=== PATIENT | female | born 1990 | race Caucasian/White ===

== ENCOUNTER 2017-10-18 02:57 | Emergency (ER) | payer MEDICAID | END 2017-10-18 05:03 | disposition home or self-care (01) | LOC: D.ER 02:57 | DX: B34.9 Viral infection, unspecified (principal); F17.200 Nicotine dependence, unspecified, uncomplicated ==

== ENCOUNTER 2018-01-17 04:21 | Emergency (ER) | payer MEDICAID ==
[2018-01-17 04:51] LABS: BASOPHILS 0.6 % (0-2); EOSINOPHILS 7.8 % (0-7); HEMATOCRIT 39.6 % (36.0-48.0); HEMOGLOBIN 13.7 g/dL (12-16); IMMATURE GRANULOCYTES 0.2 % (0-5); LYMPHOCYTES 24.5 % (15-50); MCH 29.7 pg (26.0-34.0); MCHC 34.6 g/dL (31.0-37.0); MCV 85.9 fL (80.0-100.0); MEAN PLATELET VOLUME 9.3 fL (7.4-10.4); MONOCYTES 8.6 % (2-11); NEUTROPHILS 58.3 % (40-80); PLATELET COUNT 347 10x3/uL (130-400); RBC 4.61 10x6/uL (4.00-5.40); RDW 13.1 % (11.5-14.5); WBC 6.4 10x3/uL (4.8-10.8)
[2018-01-17 06:08] LABS: UDS - AMPHET POSITIVE QUAL (NEGATIVE); UDS - BARB NEGATIVE QUAL (NEGATIVE); UDS - BENZO POSITIVE QUAL (NEGATIVE); UDS - COCAINE NEGATIVE QUAL (NEGATIVE); UDS - OPIATE NEGATIVE QUAL (NEGATIVE); UDS - PCP NEGATIVE QUAL (NEGATIVE); UDS - THC POSITIVE QUAL (NEGATIVE)
[2018-01-17 06:11] LABS: APPEARANCE CLOUDY (CLEAR); BILIRUBIN NEGATIVE (NEGATIVE); COLOR DK YELLOW (YELLOW); GLUCOSE NEGATIVE (NEGATIVE); KETONE NEGATIVE (NEGATIVE); NITRITE POSITIVE (NEGATIVE); PROTEIN 2+ mg/dL (NEGATIVE); UROBILINOGEN NORMAL (NORMAL)
[2018-01-17 06:12] LABS: RED CELLS - URINE 0-5 /hpf (0-5)
[2018-01-17 06:13] LABS: BACTERIA MANY /hpf (NONE SEEN); EPITHELIAL CELLS 0-5 /hpf (0-5)
== END 2018-01-17 07:44 ==
LOC: D.ER 04:21
PROVIDERS: Emergency Medicine
DX: S16.1XXA Strain of muscle, fascia and tendon at neck level, initial encounter (principal); V49.9XXA Car occupant (driver) (passenger) injured in unspecified traffic accident, initial encounter; Y93.89 Activity, other specified; Y92.89 Other specified places as the place of occurrence of the external cause; S80.02XA Contusion of left knee, initial encounter; S80.01XA Contusion of right knee, initial encounter; R07.89 Other chest pain

== ENCOUNTER 2018-08-09 15:38 | Emergency (ER) | payer MEDICAID ==
[~2018-08-09] VITALS: Ht 160 cm; Wt 59.1 kg
[2018-08-09 15:56] VITALS: Ht 160 cm; Wt 59.1 kg
[2018-08-09 19:10] VITALS: BP 145/97
== END 2018-08-09 19:10 | disposition home or self-care (01) ==
LOC: D.ER 15:38
DX: S61.411A Laceration without foreign body of right hand, initial encounter (principal); W26.0XXA Contact with knife, initial encounter; Y93.89 Activity, other specified; Y92.019 Unspecified place in single-family (private) house as the place of occurrence of the external cause; F17.200 Nicotine dependence, unspecified, uncomplicated

== ENCOUNTER 2018-09-12 23:51 | Inpatient (IN) | payer MEDICAID ==
[~2018-09-12] VITALS: Ht 160 cm; Wt 61.5 kg
[2018-09-13] VITALS (13 sets, daily range): BP systolic 102–118; BP diastolic 38–73; Ht 160 cm; Wt 61.5 kg
[2018-09-13 00:20] LABS: BASOPHILS 0.6 % (0-2); EOSINOPHILS 6.7 % (0-7); HEMATOCRIT 37.8 % (36.0-48.0); HEMOGLOBIN 12.4 g/dL (12-16); IMMATURE GRANULOCYTES 0.2 % (0-5); LYMPHOCYTES 28.6 % (15-50); MCH 28.9 pg (26.0-34.0); MCHC 32.8 g/dL (31.0-37.0); MCV 88.1 fL (80.0-100.0); MONOCYTES 10.7 % (2-11); NEUTROPHILS 53.2 % (40-80); PLATELET COUNT 364 10x3/uL (130-400); RBC 4.29 10x6/uL (4.00-5.40); RDW 12.9 % (11.5-14.5); WBC 6.5 10x3/uL (4.8-10.8)
[2018-09-13 00:26] LABS: HCG URINE NEGATIVE (NEGATIVE)
[2018-09-13 00:33] LABS: APPEARANCE HAZY (CLEAR); BILIRUBIN NEGATIVE (NEGATIVE); COLOR YELLOW (YELLOW); GLUCOSE NEGATIVE (NEGATIVE); KETONE NEGATIVE (NEGATIVE); NITRITE POSITIVE (NEGATIVE); PROTEIN TRACE mg/dL (NEGATIVE); SPECIFIC GRAVITY 1.015 (1.005-1.020); UROBILINOGEN NORMAL (NORMAL)
[2018-09-13 00:34] LABS: BACTERIA MANY /hpf (NONE SEEN); EPITHELIAL CELLS RARE /hpf (0-5); RED CELLS - URINE 0-5 /hpf (0-5)
[2018-09-13 00:45] LABS: ALBUMIN 3.3 g/dL (3.4-5.0); ALKALINE PHOSPHATASE 85 U/L (46-116); ALT (SGPT) 32 U/L (10-68); BILIRUBIN - TOTAL 0.13 mg/dL (0.2-1.3); CALC OSMOLALITY 275 mosm/kg (275-300); CALCIUM 8.5 mg/dL (8.5-10.1); CHLORIDE - SERUM 104 mmol/L (98-107); CREATININE - SERUM 0.9 mg/dL (0.6-1.3); GLUCOSE 75 mg/dL (74-106); POTASSIUM - SERUM 3.5 mmol/L (3.5-5.1); PROTEIN - SERUM 7.7 g/dL (6.4-8.2); SODIUM 138 mmol/L (136-145); UREA NITROGEN 16 mg/dL (7-18); eGFR NON AFRICAN AMERICAN 78 mL/min (90-120)
[2018-09-13 00:46] LABS: UDS - AMPHET POSITIVE QUAL (NEGATIVE); UDS - BARB NEGATIVE QUAL (NEGATIVE); UDS - BENZO NEGATIVE QUAL (NEGATIVE); UDS - COCAINE NEGATIVE QUAL (NEGATIVE); UDS - OPIATE POSITIVE QUAL (NEGATIVE); UDS - PCP NEGATIVE QUAL (NEGATIVE); UDS - THC NEGATIVE QUAL (NEGATIVE)
[2018-09-13 00:48] LABS: MAGNESIUM - SERUM 2.1 mg/dL (1.8-2.4)
[2018-09-13] MEDS ORDERED: BACTRIM 400-801 TAB PO (11:33)
== END 2018-09-13 12:15 | disposition home or self-care (01) | DRG 918 ==
LOC: D.ER 23:51 → D.ICU 09-13 00:55 → D.EDHOLD 09-13 00:55 → D.ICU 09-13 00:55
PROVIDERS: Emergency Medicine
DX: T40.1X1A Poisoning by heroin, accidental (unintentional), initial encounter (principal); N39.0 Urinary tract infection, site not specified; F17.200 Nicotine dependence, unspecified, uncomplicated; F15.90 Other stimulant use, unspecified, uncomplicated; F12.90 Cannabis use, unspecified, uncomplicated

== ENCOUNTER 2019-02-10 20:20 | Emergency (ER) | payer MEDICAID ==
[~2019-02-10] VITALS: Ht 160 cm; Wt 59.1 kg
[~2019-02-10 20:20] MED LIST: BACTRIM 400-801 TAB PO
[2019-02-10 20:41] VITALS: Ht 160 cm; Wt 59.1 kg
[2019-02-10 21:35] LABS: BASOPHILS 0.6 % (0-2); HEMATOCRIT 37.8 % (36.0-48.0); HEMOGLOBIN 12.4 g/dL (12-16); IMMATURE GRANULOCYTES 0.3 % (0-5); LYMPHOCYTES 24.9 % (15-50); MCH 26.8 pg (26.0-34.0); MCHC 32.8 g/dL (31.0-37.0); MCV 81.8 fL (80.0-100.0); MEAN PLATELET VOLUME 9.5 fL (7.4-10.4); NEUTROPHILS 61.2 % (40-80); PLATELET COUNT 397 10x3/uL (130-400); RBC 4.62 10x6/uL (4.00-5.40)
[2019-02-10 22:02] LABS: ALKALINE PHOSPHATASE 92 U/L (46-116); ALT (SGPT) 126 U/L (10-68); BILIRUBIN - TOTAL 0.95 mg/dL (0.2-1.3); CALC OSMOLALITY 279 mosm/kg (275-300); CALCIUM 9.1 mg/dL (8.5-10.1); CARBON DIOXIDE 28.5 mmol/L (21.0-32.0); CHLORIDE - SERUM 103 mmol/L (98-107); CREATININE - SERUM 0.9 mg/dL (0.6-1.3); POTASSIUM - SERUM 3.7 mmol/L (3.5-5.1); PROTEIN - SERUM 8.6 g/dL (6.4-8.2); SODIUM 141 mmol/L (136-145); UREA NITROGEN 15 mg/dL (7-18); eGFR NON AFRICAN AMERICAN 78 mL/min (90-120)
[2019-02-10 22:04] LABS: GLUCOSE 70 mg/dL (74-106)
[2019-02-10 22:06] LABS: MAGNESIUM - SERUM 1.9 mg/dL (1.8-2.4); THYROID STIMULATING HORMONE 0.29 uIU/mL (0.36-3.74)
[2019-02-10 23:18] LABS: T4 THYROXINE 10.2 ug/dL (4.7-13.3)
[2019-02-10 23:36] LABS: UDS - AMPHET POSITIVE QUAL (NEGATIVE); UDS - BARB NEGATIVE QUAL (NEGATIVE); UDS - BENZO POSITIVE QUAL (NEGATIVE); UDS - COCAINE NEGATIVE QUAL (NEGATIVE); UDS - OPIATE POSITIVE QUAL (NEGATIVE); UDS - PCP NEGATIVE QUAL (NEGATIVE); UDS - THC POSITIVE QUAL (NEGATIVE)
[2019-02-10 23:39] LABS: HCG URINE NEGATIVE (NEGATIVE)
[2019-02-10 23:40] LABS: APPEARANCE HAZY (CLEAR); BILIRUBIN 2+ (NEGATIVE); COLOR DK YELLOW (YELLOW); GLUCOSE NEGATIVE (NEGATIVE); KETONE NEGATIVE (NEGATIVE); NITRITE POSITIVE (NEGATIVE); PROTEIN NEGATIVE (NEGATIVE)
[2019-02-10 23:46] LABS: BACTERIA MANY /hpf (NONE SEEN); HYALINE CAST OCC /lpf (NONE SEEN); MUCUS <1+ /lpf (NONE SEEN); RED CELLS - URINE 0-5 /hpf (0-5)
[2019-02-11 02:46] VITALS: BP 138/90
== END 2019-02-11 02:50 ==
LOC: D.ER 20:20
PROVIDERS: Family Medicine
DX: R45.851 Suicidal ideations (principal)

== ENCOUNTER 2019-03-04 19:09 | Emergency (ER) | payer MEDICAID ==
[2019-03-04 19:33] VITALS: BP 133/71; BMI 24.1
[2019-03-04] MEDS ORDERED: BACLOFEN20 M1 PO (21:40)
[2019-03-04] MEDS ORDERED: VOLTAREN75 MG PO (21:40)
[2019-03-04 22:03] LABS: HCG URINE NEGATIVE (NEGATIVE)
== END 2019-03-04 22:30 | disposition home or self-care (01) ==
LOC: D.ER 19:09
PROVIDERS: Family Medicine
DX: S80.811A Abrasion, right lower leg, initial encounter (principal); V29.9XXA Motorcycle rider (driver) (passenger) injured in unspecified traffic accident, initial encounter; Y93.89 Activity, other specified; Y92.410 Unspecified street and highway as the place of occurrence of the external cause

== ENCOUNTER 2019-04-09 17:47 | Emergency (ER) | payer MEDICAID ==
[~2019-04-09] VITALS: Ht 160 cm; Wt 61.4 kg
[~2019-04-09 17:47] MED LIST changes: +BACLOFEN20 M1 PO; +VOLTAREN75 MG PO
[2019-04-09 18:32] VITALS: Ht 160 cm; Wt 61.4 kg
[2019-04-09 20:37] LABS: HEMATOCRIT 38.8 % (36.0-48.0); HEMOGLOBIN 12.7 g/dL (12-16); MCH 27.3 pg (26.0-34.0); MCHC 32.7 g/dL (31.0-37.0); MCV 83.3 fL (80.0-100.0); PLATELET COUNT 323 10x3/uL (130-400); RBC 4.66 10x6/uL (4.00-5.40); RDW 14.5 % (11.5-14.5); WBC 6.3 10x3/uL (4.8-10.8)
[2019-04-09 20:41] LABS: ALBUMIN 3.8 g/dL (3.4-5.0); ALKALINE PHOSPHATASE 110 U/L (46-116); ALT (SGPT) 158 U/L (10-68); BILIRUBIN - TOTAL 0.35 mg/dL (0.2-1.3); CALC OSMOLALITY 276 mosm/kg (275-300); CALCIUM 8.7 mg/dL (8.5-10.1); CARBON DIOXIDE 29.1 mmol/L (21.0-32.0); CHLORIDE - SERUM 102 mmol/L (98-107); CREATININE - SERUM 0.8 mg/dL (0.6-1.3); PROTEIN - SERUM 8.2 g/dL (6.4-8.2); SODIUM 138 mmol/L (136-145); UREA NITROGEN 12 mg/dL (7-18); eGFR NON AFRICAN AMERICAN 90 mL/min (90-120)
[2019-04-09 20:53] LABS: GLUCOSE 113 mg/dL (74-106)
[2019-04-09] MEDS ORDERED: ATARAX 25 MG TA25 MG PO (21:32)
[2019-04-09 21:46] LABS: EOSINOPHILS 7 % (0-7); LYMPHOCYTES 53 % (15-50); MONOCYTES 1 % (2-11); NEUTROPHILS 39 % (40-80); PLATELET ESTIMATE NORMAL
--- NOTE | 2019-04-09 22:07 | NUR ---
DR XIONG NOTIFIED AND REVIEWED PT's BEHAVIOR AND ASSESSMENT RESULTS. PT IS A LOW RISK PER DR XIONG. DR XIONG STATED TO GIVE RESOURCES TO PT AT TIME OF DISCHARGE. NO FURTHER ORDERS AT THIS TIME. RESOURCES REVIEWED WITH PT AND SHE VERBALIZED UNDERSTANDING.
[2019-04-09 22:33] VITALS: BP 147/88
== END 2019-04-09 21:47 | disposition home or self-care (01) ==
LOC: D.ER 17:47
PROVIDERS: Emergency Medicine
DX: F41.9 Anxiety disorder, unspecified (principal); Z86.19 Personal history of other infectious and parasitic diseases

== ENCOUNTER 2019-05-16 00:57 | Emergency (ER) | payer MEDICAID ==
[~2019-05-16] VITALS: Ht 160 cm; Wt 63.5 kg
[~2019-05-16 00:57] MED LIST changes: +ATARAX 25 MG TA25 MG PO
[2019-05-16 00:59] VITALS: Ht 160 cm; Wt 63.5 kg
[2019-05-16 01:27] LABS: BASOPHILS 0.4 % (0-2); EOSINOPHILS 3.1 % (0-7); HEMATOCRIT 32.4 % (36.0-48.0); HEMOGLOBIN 11.1 g/dL (12-16); IMMATURE GRANULOCYTES 0.1 % (0-5); LYMPHOCYTES 19.5 % (15-50); MCH 27.8 pg (26.0-34.0); MCHC 34.3 g/dL (31.0-37.0); MEAN PLATELET VOLUME 8.8 fL (7.4-10.4); MONOCYTES 8.5 % (2-11); NEUTROPHILS 68.4 % (40-80); PLATELET COUNT 306 10x3/uL (130-400); RDW 13.6 % (11.5-14.5)
[2019-05-16 01:36] LABS: ALBUMIN 3.6 g/dL (3.4-5.0); ALKALINE PHOSPHATASE 86 U/L (46-116); ALT (SGPT) 28 U/L (10-68); BILIRUBIN - TOTAL 0.41 mg/dL (0.2-1.3); CALC OSMOLALITY 278 mosm/kg (275-300); CALCIUM 9.1 mg/dL (8.5-10.1); CARBON DIOXIDE 28.2 mmol/L (21.0-32.0); CHLORIDE - SERUM 103 mmol/L (98-107); CREATININE - SERUM 0.8 mg/dL (0.6-1.3); GLUCOSE 101 mg/dL (74-106); POTASSIUM - SERUM 3.5 mmol/L (3.5-5.1); SODIUM 140 mmol/L (136-145); UREA NITROGEN 12 mg/dL (7-18); eGFR NON AFRICAN AMERICAN 90 mL/min (90-120)
[2019-05-16 01:41] LABS: HCG SERUM NEGATIVE (NEGATIVE)
[2019-05-16] MEDS ORDERED: NEURONTIN 300300 MG PO (01:57)
[2019-05-16 02:36] VITALS: BP 130/79
== END 2019-05-16 02:36 | disposition home or self-care (01) ==
LOC: D.ER 00:57
PROVIDERS: Family Medicine
DX: L03.221 Cellulitis of neck (principal)